=== PATIENT | female | born 1940 | race Caucasian/White ===

== ENCOUNTER 2016-12-08 09:42 | Emergency (ER) ==
[2016-12-08 09:59] VITALS: BP 185/84; TEMP 97.8; BMI 31.4
--- NOTE | 2016-12-08 10:12 | ED.PDOC ---
General ED Provider: Dr. ARNOLD VEGA Chief Complaint: Back Pain Stated Complaint: back pain lumbar Time Seen by Physician: 10:00 (lifting gardening ) Mode of Arrival: Walk-In Information Source: Patient Exam Limitations: No limitations Primary Care Provider: ALEJANDRA FOREMAN Nursing and Triage Documentation Reviewed and Agree: Yes Musculoskeletal Complaint Exam - Back Pain Complaint/Exam Mechanism of Injury: Reports: No known trauma (lumbar) Onset/Duration: 1 day after lifting Symptoms Are: Still present Timing: Constant Initial Severity: Moderate Current Severity: Moderate Location: Reports: Discrete Character: Reports: Aching, Throbbing Aggravating: Reports: None Alleviating: Reports: None Associated Signs and Symptoms: Denies: Swelling, Redness, Bruising, Fever, Weakness, Numbness, Tingling, Abdominal pain, Flank pain, Bladder incontinence, Bowel incontinence, Weight loss, Pain with weight bearing Related History: Reports: Similar episode Review of Systems - Review Of Systems Constitutional: Reports: No symptoms Eyes: Reports: No symptoms Ears, Nose, Mouth, Throat: Reports: No symptoms Respiratory: Reports: No symptoms Cardiac: Reports: No symptoms GI: Reports: No symptoms : Reports: No symptoms Musculoskeletal: Reports: Back pain Skin: Reports: No symptoms Neurological: Reports: No symptoms Endocrine: Reports: No symptoms Hematologic/Lymphatic: Reports: No symptoms All Other Systems: Reviewed and Negative Past Medical History - Past Medical History Previously Healthy: No Endocrine: Reports: Dyslipidemia Cardiovascular: Reports: None Respiratory: Reports: None Hematological: Reports: None Gastrointestinal: Reports: None Genitourinary: Reports: None Neuro/Psych: Reports: None Musculoskeletal: Reports: None Cancer: Reports: None Last Menstrual Period: unknown - Surgical History General Surgical History: Reports: None - Family History Family History: Reports: None - Social History Smoking Status: Never smoker Hx Substance Use: No Alcohol Screening: Occasionally Physical Exam - Physical Exam Appearance: Well-appearing, No pain distress, Well-nourished Eyes: AMITA, EOMI, Conjunctiva clear ENT: Ears normal, Nose normal, Oropharynx normal Respiratory: Airway patent, Breath sounds clear, Breath sounds equal, Respirations nonlabored Cardiovascular: RRR, Pulses normal, No rub, No murmur GI/: Soft, Nontender, No masses, Bowel sounds normal, No Organomegaly Musculoskeletal: Normal strength, ROM intact, No edema, No calf tenderness Skin: Warm, Dry, Normal color Neurological: Sensation intact, Motor intact, Reflexes intact, Cranial nerves intact, Alert, Oriented Psychiatric: Affect appropriate, Mood appropriate Interpretation - Radiology Interpretation Radiology Interpretation By: Radiologist Radiology Results: No acute changes - Safety And Security Manager Rate: Tyrel Rhythm: Sinus - EKG Interpretation Rate: Tyrel Rhythm: Sinus Critical Care Note - Critical Care Note Total Time (mins): 0 Course - Course Vital Signs: Temp Pulse Resp BP Pulse Ox 12/08/16 09:42 97.8 F 70 20 185/84 H 96 Departure - Departure Time of Disposition: 10:15 Disposition: HOME SELF-CARE Discharge Problem: Backache Instructions: Back Pain (ED) Condition: Good Pt referred to PMD for follow-up: Yes Additional Instructions: Please call your Family Physician as soon as possible to schedule a follow-up appointment. Allergies/Adverse Reactions: Allergies amoxicillin [Amoxicillin] Adverse Reaction (Verified 03/06/13 09:11) amoxicillin trihydrate [From Augmentin] Adverse Reaction (Verified 03/06/13 09: 11) cefaclor [From Ceclor] Adverse Reaction (Verified 03/06/13 08:43) clarithromycin [From Biaxin] Adverse Reaction (Verified 03/06/13 08:43) codeine Adverse Reaction (Verified 03/06/13 08:43) oxycodone HCl [From Percocet] Adverse Reaction (Verified 03/06/13 08:43) potassium clavulanate [From Augmentin] Adverse Reaction (Verified 03/06/13 09:11 ) prednisone Adverse Reaction (Verified 03/06/13 08:43) propoxyphene napsylate [From Darvocet-N 100] Adverse Reaction (Verified 08:43) Sulfa (Sulfonamide Antibiotics) Adverse Reaction (Verified 03/06/13 08:43) Home Medications: Ambulatory Orders Calcium Carbonate/Vitamin D3 [Calcium 1,000 + D3 Caplet] 1,200 mg PO DAILY 03/06 Cetirizine HCl [Zyrtec] 0.25 tab PO BEDTIME 03/06/13 Cholecalciferol (Vitamin D3) [D3-2000] 1 cap PO DAILY 03/06/13 Clonidine HCl [Catapres] 1 tab PO DAILY 03/06/13 Cyanocobalamin/Folic Acid [Vitamin A40-Stiek Acid Tablet] 2,500 mg SL DIRECTED 03/06/13 Cyclosporine [Restasis] 2 drop EACHEYE DAILY 03/06/13 Lactobacillus Acidophilus [Probiotic] 1 cap PO DAILY 03/06/13 Levothyroxine Sodium [Synthroid] 1 tab PO DAILY 03/06/13 Levothyroxine Sodium [Synthroid] 1 tab PO DE ANDA 03/06/13 Losartin Pill 03/06/13 Multivitamin [Multi Vitamin Daily] 1 tab PO DAILY 03/06/13 [place]-3 Fatty Acids/Fish Oil [Fish Oil 1,000 mg Capsule] 5 cap PO DAILY Pravastatin Sodium [Pravachol] 03/06/13
== END 2016-12-08 10:27 | disposition home or self-care (01) ==
LOC: ED 09:42
DX: M54.5 Low back pain (principal); X50.9XXA Other and unspecified overexertion or strenuous movements or postures, initial encounter
CPT/HCPCS: 99283

== ENCOUNTER 2016-12-24 11:00 | Outpatient (RCR) ==
--- NOTE | 2016-12-18 14:52 | RS.OPPTEV2 ---
Date of Note: 12/18/16 Visit #: 1 Date of Evaluation: 12/18/16 Payer Source: MEDICARE Treatment Diagnosis: Low back pain, right LE radiating symptoms History of Condition/Mechanism of Injury:: Patient reports her back and LE pain began in mid October. States pain started after she was out working in her garden. States she has had also possibly aggravated it by working a yard sale, radha, and standing to cook a lot of food for friends. States she had to come out to the ER a few weeks ago. Prior Level of Function.....Patient was independent with: ADL's, Self Care, Caregiving, Ambulation/Mobility, Community Integration/Access Functional Limitations: Sleep, ADL's, Lifting, Standing, Bending, Squatting, Ambulation, Community Access/Integration Current Subjective/complaints:: Patient reports low back pain and radiating pain and numbness into the right LE to the knee. States she has been laying on the left side to reduce stress on the right side, and now the left hip area is sore. She is unable to take an oral steroid, NSAIDs, or muscle relaxant. She was given a prescription for a compounded topical cream to use for pain and also has [place]. States she cannot tell much benefit with topical cream and she also does not want to have to take the [place] much longer. She has a prescription for a pain patch, but states her insurance does not cover it and it costs $300. She has not filled it at this time. States she wants to get pain relief soon because they will be traveling to [place]. She is scheduled next week to have a nerve block to decrease chronic right knee pain. Medical History Surgical History: Cholecystectomy Surgical History Comments:: Right TKA 2016, Carpal Tunnel surgery bilateraly 2006 Smoking Status: Never smoker Diagnostic Testing/Imaging:: MRI of lumbar spine on 12/10/16 shows mild degenerative changes. No disc herniation or apparent impingement on neural structures. L2-3 shows mild disc bulging and L5-S1 shows a very small central disc protrusion. Patient's Goals: Her goal is to get relief of low back pain and right LE symptoms. Pain Assessment - Pain Description Pain Location: right low back and right LE Pain Description: Radiating, Aching Current Pain Intensity: 8-9/10 Worst Pain Intensity: 10/10 Functional Outcome Measure Oswestry LBP: 56 - G Codes & Severity Modifier G Codes & Modifier: Mobility current CK. Mobility goal CI Source of G Code score: Oswestry LBP scale Observation - Observation Comments: Stands slightly flexed forward at hips. Gait - Gait Pattern Gait Comments: Patient ambulates without an assistive device, with decreased stance on the right LE. Also demonstrates decreased right hip and knee flexion during swing phase. - ROM Lumbar Flexion: Hand reach to Mid-Thighs (lumbar spine hypomobile) Sidebending to Left: Reach to Lateral Joint Line Sidebending to Right: Reach to Lateral Joint Line Lumbar Spine ROM Limitations: Pain Comments: Patient reports increased discomfort with all active lumbar ROM. Bilateral LE AROM is WFL's. End range hip flexion, ER, and IR causes increased discomfort in the right lumbosacral area. - Strength Comments: Right hip flexion, ER, and IR 4/5 with discomfort with resistance. Right knee 4+/5, ankle 4+/5. Left hip, knee and ankle 4+ to 5/5 throughout. - Special Tests GENET Test: Negative Left, Negative Right SLR Test: Negative Left, Negative Right Seated Dural Stretch Test: Negative Left, Negative Right SI Joint Compression: Negative Comments: All Special Tests elicit discomfort, but do not significantly reproduce her pain/symptoms. Palpation Comments:: Reports no specific tenderness along the lumbar paraspinals or directly over the spinous processes. Demonstrates moderate increased muscle tone along the lumbar paraspinals bilaterally. She does report tenderness around the right SI joint and further over the superior gluteal musculature. Demonstrates minimal to moderate increased muscle tone in the right superior gluteal muscle. Left greater trochanter is tender to moderate pressure. Sensation - Sensation Comments: Reports current numbness into the right thigh to the knee. Additional Comments: Additional Comments: SLR in supine: right 40-45 degrees, left 50-55 degrees. - Treatment Modality: Ultrasound Parameters/Method Applied: 12 mins total, 1.6 w/cm2 X 6 mins to right superior gluteal and SI region and 6 mins to right lumbar paraspinals. Patient Position: Left Sidelying Interventions - Exercise/Activities/Manual Therapy Exercises/Activities: none given today. Advised to avoid bending straight over and to try a thicker pillow between knees when in sidelying at night. Manual Therapy: Na - Charges Total Direct Minutes: 55 mins Total Treatment Time: 55 mins Procedures billed for this date of service:: EVAL medium, US Assessment Assessment: Patient presents to therapy with a diagnosis of Low back pain. She reports right low back and LE pain and numbness to the knee. She exhibits increased muscle tone in the lumbar paraspinals and right gluteal region. Exhibits right hip weakness. Right HS length is shorter than the left. All Special Tests cause discomfort in the right lumbosacral region, but none specifically reproduced her pain. She will benefit from modalities to reduce muscle tension and tenderness and exercises as indicated to reduce her symptoms of pain. Patient Education: Education of diagnosis, Body/Joint mechanics, Home Safety, Activity Modification, Education of Plan of Care Rehab Potential: Good Short Term Goals Goal #1: Tenderness at right sacral/gluteal region decreased to minimal. Goal to be met by: 01/01/17 Goal #2: Right radiating symptoms localized to the low back. Goal to be met by: 01/01/17 Goal #3: Right SLR equal to the left. Goal to be met by: 01/01/17 [facility] Goals Goal #1: Pt independent with HEP and knows to cont. ex's following D/C. Goal to be met by: 01/27/17 Goal #2: Score on Oswestry LBP scale improved to 20. Goal to be met by: 01/27/17 Goal #3: Pt able to perform household activities with minimal LBP or RLE symptoms. Goal to be met by: 01/27/17 Goal #4: Pt demo. good back safety and understanding of body mechanics. Goal to be met by: 01/27/17 Plan - Treatment to be Provided Procedures: Therapeutic Exercises, Therapeutic Activity, Manual Therapy, Patient Education Modalities: Electrical Stimulation, Ultrasound/Phonophoresis, Class IV Laser, Cryotherapy, Hot Packs - Treatment Plan Frequency: 3 X week Duration: 4 weeks ORDER # VISITS AND/OR THROUGH DATE: 01/27/17 - Treatment Code (1) Low back pain Qualifiers: Chronicity: acute Back pain laterality: right Sciatica presence: unspecified whether sciatica present Qualified Description: Acute right- sided low back pain, with sciatica presence unspecified Qualifier Code(s) : (M54.5) Low back pain
--- NOTE | 2016-12-19 11:48 | RS.OPPTDN ---
Subjective Date of Note: 12/19/16 Visit #: 2 Date of Evaluation: 12/18/16 Payer Source: MEDICARE Treatment Diagnosis: Low back pain, right LE radiating symptoms Current Subjective/complaints:: Patient reports increased pain last night. Reports radiating pain into the right LE to the point that she was in tears. States later that she has stopped taking the [place] and is going to get better without having to take the strong medication. Reports symptoms feeling less during treatment today. Following treatment, while walking out of departmet, she reports less radiating pain into the right LE. Pain Assessment - Pain Description Pain Location: right low back and right LE Pain Description: Radiating, Aching Current Pain Intensity: 8 - Treatment Modality: Ultrasound (with 10% hydrocortisone cream) Parameters/Method Applied: 1.8 w/cm2 continuous X 20 mins Treatment Area: Right lumbar, SI, superior gluteal region Patient Position: Left Sidelying Interventions - Exercise/Activities/Manual Therapy Exercises/Activities: NO exercises given again today. Will add as acute pain is decreased. Manual Therapy: Na - Charges Total Direct Minutes: 20 mins Total Treatment Time: 25 mins Procedures billed for this date of service:: US Assessment: Patient reports increased pain last night. Reports less symptoms during and immediately following treatment today. Patient Education: Body/Joint mechanics, Activity Modification Short Term Goals Goal #1: Tenderness at right sacral/gluteal region decreased to minimal. Goal to be met by: 01/01/17 Goal #2: Right radiating symptoms localized to the low back. Goal to be met by: 01/01/17 Goal #3: Right SLR equal to the left. Goal to be met by: 01/01/17 Java Flex Developer Goals Goal #1: Pt independent with HEP and knows to cont. ex's following D/C. Goal to be met by: 01/27/17 Goal #2: Score on Oswestry LBP scale improved to 20. Goal to be met by: 01/27/17 Goal #3: Pt able to perform household activities with minimal LBP or RLE symptoms. Goal to be met by: 01/27/17 Goal #4: Pt demo. good back safety and understanding of body mechanics. Goal to be met by: 01/27/17 Plan PLAN OF CARE EXPIRES ON:: 01/27/17 ORDER # VISITS AND/OR THROUGH DATE: 01/27/17 PLAN: Continue Plan of Care (continue with US treatment and may try stretch/ex' s tomorrow.)
--- NOTE | 2016-12-20 16:19 | RS.OPPTDN ---
Subjective Date of Note: 12/20/16 Visit #: 3 Date of Evaluation: 12/18/16 Payer Source: MEDICARE Treatment Diagnosis: Low back pain, right LE radiating symptoms Current Subjective/complaints:: Patient states she did better last night after her therapy session. States she was able to sit longer and also reports less intensity of pain in right LE. She is curious to see if the nerve blocks for her right knee may decrease some of her thigh pain. Following treatment today, patient states the right low back and LE feel better. Pain Assessment - Pain Description Pain Location: right low back and right LE Pain Description: Radiating, Aching Current Pain Intensity: not rated but states is less intense - Treatment Modality: Ultrasound Parameters/Method Applied: 20 mins X 1.8 w/cm continuous to right lumbar paraspinals, SI region, and superior gluteal region. Patient Position: Left Sidelying - Heat/Cryotherapy Treatment: Hot Pack (X 15 mins to lumbar spine in supine.) Interventions - Exercise/Activities/Manual Therapy Exercises/Activities: NO exercises given again today. Manual Therapy: Na - Charges Total Direct Minutes: 20 mins Total Treatment Time: 35 mins Procedures billed for this date of service:: , US Assessment: Patient with reports of less intense pain last night and following treatment today. As pain intensity goes down she will need to begin exercises as tolerated to address her symptoms. Short Term Goals Goal #1: Tenderness at right sacral/gluteal region decreased to minimal. Goal to be met by: 01/01/17 Goal #2: Right radiating symptoms localized to the low back. Goal to be met by: 01/01/17 Goal #3: Right SLR equal to the left. Goal to be met by: 01/01/17 Hoop Driving Machine Operator Goals Goal #1: Pt independent with HEP and knows to cont. ex's following D/C. Goal to be met by: 01/27/17 Goal #2: Score on Oswestry LBP scale improved to 20. Goal to be met by: 01/27/17 Goal #3: Pt able to perform household activities with minimal LBP or RLE symptoms. Goal to be met by: 01/27/17 Goal #4: Pt demo. good back safety and understanding of body mechanics. Goal to be met by: 01/27/17 Plan PLAN OF CARE EXPIRES ON:: 01/27/17 ORDER # VISITS AND/OR THROUGH DATE: 01/27/17 Comments:: Will attempt to add long axis distraction and/or stretching to right HS/Piriformis if patient tolerates next week.
--- NOTE | 2016-12-23 16:15 | RS.OPPTDN ---
Subjective Date of Note: 12/23/16 Visit #: 3 Date of Evaluation: 12/18/16 Payer Source: MEDICARE Treatment Diagnosis: Low back pain, right LE radiating symptoms Current Subjective/complaints:: Patient says that she feels her pain is decreasing. Reports she is still unable to lay on the R side however. She says she has ordered a TENS unit and is anxious to receive it and learn how to use it for when she leaves for [place]. She says she will also be getting a nerve block to her knees on Friday. Pain Assessment - Pain Description Pain Location: right low back and right LE Pain Description: Radiating, Aching Pain Description: Using Voltaren cream up to 4 x daily Current Pain Intensity: not rated but states is less intense - Treatment Modality: Ultrasound Parameters/Method Applied: PHONOPHORESIS using 10% Hydrocortisone and continuous @ 1.5 w/cm2 1mHz to the R lumbar paraspinals and R SI x 14 mins Patient Position: Left Sidelying - Heat/Cryotherapy Treatment: Hot Pack (mid to low back and SI in supine x 20 mins) Interventions - Exercise/Activities/Manual Therapy Exercises/Activities: Patient received gentle passive Piriformis stretching for the R prior to u/s today. Patient inquires of home piriformis stretch device and whether it would be beneficial. PT spoke with pt and encouraged using towel or sheet for assistance. Total minutes of Exercise: 10 Manual Therapy: Na - Charges Total Direct Minutes: 24 Total Treatment Time: 44 Procedures billed for this date of service:: hp, u/s, ex Assessment: Patient experiencing less pain and tenderness with mild palpation to the R LB and SI. She still is unable to sleep on the R side at this time, but will be receiving a TENS unit per her purchase along with using Voltaren cream that may help patient further with pain level and prolonged sitting. She will be receiving an injection to the knees Friday which may result in further pain reduction. Stretches cheryl with improved ease today, although gentle. She requires further assistance with stretches and modalities to ease her pain and allow for more improvement with therex. Patient Education: Education of diagnosis, Body/Joint mechanics, Home Exercise Program, Home Safety, Activity Modification, Education of Plan of Care Short Term Goals Goal #1: Tenderness at right sacral/gluteal region decreased to minimal. Goal to be met by: 01/01/17 Progress towards Goal:: Progressing Goal #2: Right radiating symptoms localized to the low back. Goal to be met by: 01/01/17 Goal #3: Right SLR equal to the left. Goal to be met by: 01/01/17 Systems Administrator Goals Goal #1: Pt independent with HEP and knows to cont. ex's following D/C. Goal to be met by: 01/27/17 Goal #2: Score on Oswestry LBP scale improved to 20. Goal to be met by: 01/27/17 Goal #3: Pt able to perform household activities with minimal LBP or RLE symptoms. Goal to be met by: 01/27/17 Goal #4: Pt demo. good back safety and understanding of body mechanics. Goal to be met by: 01/27/17 Plan PLAN OF CARE EXPIRES ON:: 01/27/17 ORDER # VISITS AND/OR THROUGH DATE: 01/27/17 Comments:: Continue modalities and therex as able x 3 more weeks
--- NOTE | 2016-12-24 13:35 | RS.OPPTDN ---
Subjective Date of Note: 12/24/16 Visit #: 5 Date of Evaluation: 12/18/16 Payer Source: MEDICARE Treatment Diagnosis: Low back pain, right LE radiating symptoms Current Subjective/complaints:: Patient says she feels her pain is improving. She states that the stretches yesterday did not cause any increase in pain and is hoping they will further help today. Pain Assessment - Pain Description Pain Location: right low back and right LE Pain Description: Radiating, Aching Pain Description: she is now trying to wean away from gels/creams Current Pain Intensity: not rated but states is less intense - Treatment Modality: Ultrasound Parameters/Method Applied: PHONOPHORESIS x 14 mins continuous @ 1.7 w/cm2 to the R lumbar paraspinals and SI joint. Patient Position: Left Sidelying - Heat/Cryotherapy Treatment: Hot Pack (low back to the hips in supine) Interventions - Exercise/Activities/Manual Therapy Exercises/Activities: Patient continued to receive assisted gentle short range stretching of passive Piriformis stretching, trunk rotation to the L and HS for the R prior to u/s today. Patient continued to receive education of diagnosis and instruction on home stretching. Total minutes of Exercise: 15 Manual Therapy: Na - Charges Total Direct Minutes: 29 Total Treatment Time: 49 Procedures billed for this date of service:: hp, u/s, ex Assessment: Patient demo improvement with pain reduction to the R SI and low back, also admitting less tenderness to the R LB. Improved cheryl to gentle stretching with piriformis and HS, but still requires the need of assistance from CHANNEL PROCESS SUPERVISOR and use of u/s to decrease muscle guarding and pain. Patient Education: Education of diagnosis, Body/Joint mechanics, Home Exercise Program, Home Safety, Activity Modification, Education of Plan of Care Patient demonstrates compliance with HEP?: Yes Short Term Goals Goal #1: Tenderness at right sacral/gluteal region decreased to minimal. Goal to be met by: 01/01/17 Progress towards Goal:: Progressing Goal #2: Right radiating symptoms localized to the low back. Goal to be met by: 01/01/17 Goal #3: Right SLR equal to the left. Goal to be met by: 01/01/17 Informatics Consultant Goals Goal #1: Pt independent with HEP and knows to cont. ex's following D/C. Goal to be met by: 01/27/17 Goal #2: Score on Oswestry LBP scale improved to 20. Goal to be met by: 01/27/17 Goal #3: Pt able to perform household activities with minimal LBP or RLE symptoms. Goal to be met by: 01/27/17 Goal #4: Pt demo. good back safety and understanding of body mechanics. Goal to be met by: 01/27/17 Plan PLAN OF CARE EXPIRES ON:: 01/27/17 ORDER # VISITS AND/OR THROUGH DATE: 01/27/17 PLAN: Progress Exercises (3x2 more weeks as [place] leaving for [place])
== END 2016-12-26 ==
PROVIDERS: ATTEND Family Medicine
DX: M54.41 Lumbago with sciatica, right side (principal); M19.90 Unspecified osteoarthritis, unspecified site

== ENCOUNTER 2016-12-27 15:43 | Outpatient (CLI) ==
--- NOTE | 2016-12-27 16:10 | DI ---
Exam: Two x-rays of the right hip. Comparison: CT abdomen pelvis performed on 03/06/2013. Reason for exam: Right hip pain. FINDINGS: The partially imaged pelvic ring appears intact. No acute fracture or dislocation is see n within the right hip. The right femoral head articulates with the acetabulum. There is mild to m oderate degenerative disease seen within the right hip. Impression: 1. No acute fracture or dislocation in the right hip. 2. Mild to moderate degenerative disease
== END 2016-12-27 15:44 | disposition home or self-care (01) ==
LOC: RAD 15:43
PROVIDERS: ATTEND Family Medicine
DX: M25.551 Pain in right hip (principal)

== ENCOUNTER 2017-01-10 13:00 | Outpatient (RCR) ==
--- NOTE | 2016-12-27 13:14 | RS.CXNS ---
Date of scheduled appointment: 12/27/16 Type: Cancel (Patient called to cancel appointment due to being admitted to hospital.)
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
--- NOTE | 2017-01-01 13:22 | RS.OPPTDN ---
Subjective Date of Note: 01/01/17 Visit #: 7 Date of Evaluation: 12/18/16 Payer Source: MEDICARE Treatment Diagnosis: Low back pain, right LE radiating symptoms Current Subjective/complaints:: Patient reports a reduction in right gluteal pain and burning in the right anterior lateral thigh following modalities today. Pain Assessment - Pain Description Pain Location: right low back and right LE Pain Description: she is now trying to wean away from gels/creams Current Pain Intensity: mod to high Other Comments regarding Pain:: C/c is burning in the right aterior to lateral thigh - Treatment Modality: US with ES (Comb.) Parameters/Method Applied: [id number] to the right lower lumbar paraspinals, S-I joint, and right gluteal region. Patient Position: Left Sidelying - Heat/Cryotherapy Treatment: Hot Pack ([id number] to the lowback and hips with LE's elevated prior to USCOM. Patient in supine. ) Interventions - Exercise/Activities/Manual Therapy Exercises/Activities: With-held exercise today due to pain. Discussed gentle stretching and alternative sitting positions due to need for support of the LB and pelvis. Manual Therapy: Na - Charges Total Direct Minutes: 14mins Total Treatment Time: 35mins Procedures billed for this date of service:: HP, USCOM Assessment: Patient responds to USCOM with reports of reduction of pain. She should be able to resume exercise next session. Short Term Goals Goal #1: Tenderness at right sacral/gluteal region decreased to minimal. Goal to be met by: 01/01/17 Progress towards Goal:: Progressing Goal #2: Right radiating symptoms localized to the low back. Goal to be met by: 01/01/17 Goal #3: Right SLR equal to the left. Goal to be met by: 01/01/17 Penitentiary Goals Goal #1: Pt independent with HEP and knows to cont. ex's following D/C. Goal to be met by: 01/27/17 Goal #2: Score on Oswestry LBP scale improved to 20. Goal to be met by: 01/27/17 Goal #3: Pt able to perform household activities with minimal LBP or RLE symptoms. Goal to be met by: 01/27/17 Goal #4: Pt demo. good back safety and understanding of body mechanics. Goal to be met by: 01/27/17 Plan PLAN OF CARE EXPIRES ON:: 01/27/17 ORDER # VISITS AND/OR THROUGH DATE: 01/27/17 PLAN: Continue Plan of Care (ontinue modalities and progress exercise to reduce pain and increase patients functional activity level.)
--- NOTE | 2017-01-03 14:52 | RS.OPPTDN ---
Subjective Date of Note: 01/03/17 Visit #: 8 Date of Evaluation: 12/18/16 Payer Source: MEDICARE Treatment Diagnosis: Low back pain, right LE radiating symptoms Current Subjective/complaints:: Reports improvement in pain and in mobility since last session. Report min to no discomfort immediately following modalities and exercise today. Pain Assessment - Pain Description Pain Location: right low back and right LE Pain Description: she is now trying to wean away from gels/creams Current Pain Intensity: moderate+ - Treatment Modality: US with ES (Comb.) Parameters/Method Applied: [id number] US at 1.5w/cm2 and Estim to 10-11p.v. to the right lowback, S-I, and mid glut prior to EX. Patient Position: Left Sidelying - Heat/Cryotherapy Treatment: Hot Pack ([id number] to the lowback and hips prior to USCOM and EX. Patient in supine. ) Interventions - Exercise/Activities/Manual Therapy Exercises/Activities: [id number] Assisted patient with stretching of the bilateral hamstrings, SKTC, piriformis, and trunk rotation. Isometric hip add. Began bridging. Discussed SLR, but advised patient to hold at this time. Patient discussed lumbar support for chair and possibly changing mattress. Total minutes of Exercise: 12mins Manual Therapy: Na HOME EXERCISE PROGRAM: Hamstring, pirifromis, and trunk rotation stretching. Bridging. - Charges Total Direct Minutes: 24mins Total Treatment Time: 44mins Procedures billed for this date of service:: HP, USCOM, EX Assessment: Patient reporting good response to USCOM and progressive exercise. Patient Education: Body/Joint mechanics, Home Exercise Program, Home Safety, Activity Modification Patient demonstrates compliance with HEP?: Yes Short Term Goals Goal #1: Tenderness at right sacral/gluteal region decreased to minimal. Goal to be met by: 01/01/17 Progress towards Goal:: Progressing Goal #2: Right radiating symptoms localized to the low back. Goal to be met by: 01/01/17 Goal #3: Right SLR equal to the left. Goal to be met by: 01/01/17 Long-Term Goals Goal #1: Pt independent with HEP and knows to cont. ex's following D/C. Goal to be met by: 01/27/17 Goal #2: Score on Oswestry LBP scale improved to 20. Goal to be met by: 01/27/17 Goal #3: Pt able to perform household activities with minimal LBP or RLE symptoms. Goal to be met by: 01/27/17 Goal #4: Pt demo. good back safety and understanding of body mechanics. Goal to be met by: 01/27/17 Plan PLAN OF CARE EXPIRES ON:: 01/27/17 ORDER # VISITS AND/OR THROUGH DATE: 01/27/17 PLAN: Continue Plan of Care (Continue modalities and progress trunk stability exercises to reduce patient and increase patients functional activity level.)
--- NOTE | 2017-01-06 14:49 | RS.OPPTDN ---
Subjective Date of Note: 01/06/17 Visit #: 9 Date of Evaluation: 12/18/16 Payer Source: MEDICARE Treatment Diagnosis: Low back pain, right LE radiating symptoms Current Subjective/complaints:: Patient reports pain in her lowback has decreased to mild. C/c continues to be a numbness in the left anterior-lateral right thigh with sporadic burning. Pain Assessment - Pain Description Pain Location: right low back and right LE Current Pain Intensity: moderate - Treatment Modality: US with ES (Comb.) Parameters/Method Applied: [id number] with US at 1.5w/cm2 and Estim at 11-12p.v. to the right lowback, S-I joint, and mid to upper glut region prior to EX. Patient Position: Left Sidelying - Heat/Cryotherapy Treatment: Hot Pack ([id number] to the LB and hips prior to USCOM and EX. Patient in supine. ) Interventions - Exercise/Activities/Manual Therapy Exercises/Activities: [id number] Assisted patient with stretching of the bilateral hamstrings, SKTC, piriformis, and trunk rotation. Isometric hip add. Isometric hip flexion. Advanced to full bridging. Total minutes of Exercise: 14mins Manual Therapy: Na HOME EXERCISE PROGRAM: Hamstring, pirifromis, and trunk rotation stretching. Bridging. - Charges Total Direct Minutes: 28mins Total Treatment Time: 48mins Procedures billed for this date of service:: HP, USCOM, EX Assessment: Patient responding to pelvic alignment exercise. Patient Education: Home Exercise Program Comments: Patient advised to increase frequency of bridging to 4 to 5 times per day. Patient demonstrates compliance with HEP?: Yes Short Term Goals Goal #1: Tenderness at right sacral/gluteal region decreased to minimal. Goal to be met by: 01/01/17 Progress towards Goal:: Progressing Goal #2: Right radiating symptoms localized to the low back. Goal to be met by: 01/01/17 Goal #3: Right SLR equal to the left. Goal to be met by: 01/01/17 Tinning Equipment Tender Goals Goal #1: Pt independent with HEP and knows to cont. ex's following D/C. Goal to be met by: 01/27/17 Goal #2: Score on Oswestry LBP scale improved to 20. Goal to be met by: 01/27/17 Goal #3: Pt able to perform household activities with minimal LBP or RLE symptoms. Goal to be met by: 01/27/17 Progress towards goal: Progressing Goal #4: Pt demo. good back safety and understanding of body mechanics. Goal to be met by: 01/27/17 Plan PLAN OF CARE EXPIRES ON:: 01/27/17 ORDER # VISITS AND/OR THROUGH DATE: 01/27/17 PLAN: Progress Exercises (Continue modalities and progress trunk strengthening exercises to reduce pain and increase functional activity level.)
--- NOTE | 2017-01-08 14:49 | RS.OPPTDN ---
Subjective Date of Note: 01/08/17 Visit #: 10 Date of Evaluation: 12/18/16 Payer Source: MEDICARE Treatment Diagnosis: Low back pain, right LE radiating symptoms Current Subjective/complaints:: Patient reports she is progressing over the last few days. She is working on HEP as instructed. States she is walking better and more mobile around her home. Pain Assessment - Pain Description Pain Location: right low back and right LE Current Pain Intensity: mild in lowback and moderate in right anterior-lateral thigh - Treatment Modality: US with ES (Comb.) Parameters/Method Applied: [id number] with US at 1.5w/cm2 and Estim to 10-12p.v. to the right LB, S-I, and mid to upper gluteal region. - Heat/Cryotherapy Treatment: Hot Pack ([id number] to the lowback and hips prior to USCOM. Patient in supine. ) Interventions - Exercise/Activities/Manual Therapy Exercises/Activities: [id number] Assisted patient with stretching of the bilateral hamstrings, SKTC, piriformis, and trunk rotation. Isometric hip add and isometric hip abd. Isometric hip flexion. Isometric trunk rotation in neutral. Bridging. Total minutes of Exercise: 15mins Manual Therapy: Na HOME EXERCISE PROGRAM: Hamstring, pirifromis, and trunk rotation stretching. Bridging. - Objective Findings Observations,measurements,etc.: Patients Oswestry score increased to 23 or 46% impairment (was 28 or 56% on Eval) - Charges Total Direct Minutes: 27mins Total Treatment Time: 47mins Procedures billed for this date of service:: HP, USCOM, EX Assessment: Patient continues to report progress in pain and increased function at home. Patient Education: Body/Joint mechanics, Home Exercise Program Patient demonstrates compliance with HEP?: Yes Short Term Goals Goal #1: Tenderness at right sacral/gluteal region decreased to minimal. Goal to be met by: 01/01/17 Progress towards Goal:: Progressing Goal #2: Right radiating symptoms localized to the low back. Goal to be met by: 01/01/17 Progress towards Goal:: No Change Goal #3: Right SLR equal to the left. Goal to be met by: 01/01/17 Progress towards Goal:: Progressing Penitentiary Goals Goal #1: Pt independent with HEP and knows to cont. ex's following D/C. Goal to be met by: 01/27/17 Goal #2: Score on Oswestry LBP scale improved to 20. Goal to be met by: 01/27/17 Progress towards goal: Partially Met Comments: Patient at 23 on Oswestry scale Goal #3: Pt able to perform household activities with minimal LBP or RLE symptoms. Goal to be met by: 01/27/17 Progress towards goal: Progressing Goal #4: Pt demo. good back safety and understanding of body mechanics. Goal to be met by: 01/27/17 Progress towards goal: Progressing Plan PLAN OF CARE EXPIRES ON:: 01/27/17 ORDER # VISITS AND/OR THROUGH DATE: 01/27/17 PLAN: Progress Exercises (Continue and progress exercise to increase trunk stability, reduce pain, and increase functional activity level.)
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
--- NOTE | 2017-01-20 09:05 | RS.PTSUM ---
Progress Note/Summary Date of Note: 01/08/17 Date of Evaluation: 12/18/16 Number of Visits: 10 Reporting Period for this Progress Note: 12/18/16 through 01/08/17 Current Complaints/Gains: Patient reports being pleased with progress of decreased pain. Reports increased mobility at home and in the community. States pain in the low back is mid, but continues to have numbness and burning in the right anterior/lateral thigh. Objective Measurements/Presentation: SLR to 45 degrees bilaterally. Patient ambs. short distances with gait deviation or asst device. Bed mobility has improved to need less assistance. Oswestry has improved by 5 points. G Codes: Mobility current CK. Mobility goal CI Source of G Code Score: Oswestry LBP - Short Term Goals Goal #1: Tenderness at right sacral/gluteal region decreased to minimal. Goal to be met by: 01/01/17 Progress towards Goal:: Progressing Goal #2: Right radiating symptoms localized to the low back. Goal to be met by: 01/01/17 Progress towards Goal:: No Change Goal #3: Right SLR equal to the left. Goal to be met by: 01/01/17 Progress towards Goal:: Progressing - Call Center Coordinator Goals Goal #1: Pt independent with HEP and knows to cont. ex's following D/C. Goal to be met by: 01/27/17 Progress towards goal: Progressing Goal #2: Score on Oswestry LBP scale improved to 20. Goal to be met by: 01/27/17 Progress towards goal: Partially Met Goal #3: Pt able to perform household activities with minimal LBP or RLE symptoms. Goal to be met by: 01/27/17 Progress towards goal: Progressing Goal #4: Pt demo. good back safety and understanding of body mechanics. Goal to be met by: 01/27/17 Progress towards goal: Progressing - Assessment Assessment of Improvement/Progress: Patient with reports of less pain and improved mobility. Continues to have radiating symptoms into the right ant/ lateral thigh. He will benefit from pelvic/trunk strengthening to reduce pain and further increase her functional level. Summary: Patient has made progress towards goals., Patient demonstrates potential to gain increased function with therapy, Maximum potential has yet to be attained. - Plan Plan: Continue Plan of Care Frequency: 2 X week Duration: 1 week PLAN OF CARE EXPIRES ON:: 01/27/17 ORDER # VISITS AND/OR THROUGH DATE: 01/27/17
== END 2017-01-25 ==
PROVIDERS: ATTEND Family Medicine
DX: M54.5 Low back pain (principal); M19.90 Unspecified osteoarthritis, unspecified site